=== PATIENT | female | born 1945 | race African-American/Black ===

== ENCOUNTER 2024-10-25 20:25 | Emergency (ER) | payer OTHER ==
[~2024-10-25] VITALS: Ht 165.1 cm; Wt 120.0 kg
[~2024-10-25 20:25] MED LIST: LISINOPRIL; MELOXICAM
[2024-10-25 20:36] VITALS: O2SAT 99
[2024-10-25 23:37] LABS: BASOPHILS % 0.9 % (0.0-2.0); EOSINOPHILS % 0.4 % (0.0-5.0); HEMATOCRIT. 37.6 % (36.0-48.0); LYMPHOCYTES % 15.7 % (20.0-50.0); MEAN CORPUSCULAR HEMOGLOBIN 27.5 pg (28.0-32.0); MEAN CORPUSCULAR VOLUME 85.8 fL (81.0-99.0); MEAN PLATELET VOLUME 6.9 fl (7.4-10.4); MONOCYTES % 11.7 % (2.0-8.0); NEUTROPHILS % 71.3 % (40.0-76.0); PLATELET 355 x1000/uL (130-400); RED BLOOD CELL COUNT 4.38 mill/uL (4.2-5.4); RED CELL DISTRIBUTION WIDTH 15.5 % (11.6-14.6); WHITE BLOOD COUNT 12.6 x1000/uL (4.5-11.0)
[2024-10-25 23:44] LABS: CHLORIDE 102 mEq/L (98-107); SODIUM 140 mEq/L (136-145)
[2024-10-25 23:45] LABS: CALCIUM 10.2 mg/dL (8.7-10.4); CARBON DIOXIDE 34 mEq/L (21-32)
[2024-10-25 23:49] LABS: URIC ACID 5.8 mg/dL (3.1-7.8)
[2024-10-25 23:50] LABS: CREATININE 0.8 mg/dL (0.6-1.0); GLUCOSE 114 mg/dL (70-105); UREA NITROGEN BLOOD 16 mg/dL (9-23)
[2024-10-26] MEDS ORDERED: CEPH500C2 MT (00:35)
[2024-10-26] MEDS ORDERED: T3 PO (00:38)
[2024-10-26] MEDS: CEPHALEXIN 250MG CAPSULE PO ONE (00:59)
[2024-10-26] MEDS: ACETAMINOPHEN WITH CODEINE 300/30MG TABLET PO ONE (00:59)
[2024-10-26 01:19] VITALS: BP 106/67; PULSE 91; RESP 18; TEMP 36.8; O2SAT 98
== END 2024-10-26 01:20 | disposition home or self-care (01) ==
LOC: ER 20:25 → EDBEDREQ 22:01 → ER 10-26 01:20
DX: L03.116 Cellulitis of left lower limb (principal); M79.89 Other specified soft tissue disorders; R55 Syncope and collapse; I10 Essential (primary) hypertension; E78.00 Pure hypercholesterolemia, unspecified; Z79.899 Other long term (current) drug therapy
CPT/HCPCS: 36415; 71045; 73630; 80048; 84550; 85025; 93005; 93970; 99285